=== PATIENT | male | born 1950 | race Caucasian/White ===

== ENCOUNTER → 2019-04-05 | Outpatient (CLI) | payer OTHER ==
[~2019-04-05] MED LIST: KEFLEX250 MG PO; PRILOSEC 10MG C10 M1 PO
--- NOTE | 2019-04-05 10:13 | 2DMMODE ---
[facility] [place] [address] 2 D/M-MODE ECHOCARDIOGRAM Name: ALDEN ALFARO Room #: [facility]#: [id number] ������������� Admission: 04/05/19 ������������� Attend Phys: Kaveh Orellana Discharge: ��� ������������� ��� Date of : 54 Date of Service: 04/05/19 1013 �� Report #: [id number] �������� ��������������������������������������������[id number] THIS REPORT FOR: //name// APPROVED REPORT Study performed: 04/05/2019 09:07:10 EXAM: Comprehensive 2D, Doppler, and color-flow Echocardiogram Patient Location: Out-Patient Status: routine BSA: 2.21 HR: 70 bpm BP: 132/86 mmHg Rhythm: NSR Other Information Study Quality: Adequate Indications Pacemaker 2D Dimensions RVDd: 41.85 mm IVSd: 10.30 (7-11mm) LVOT Diam: 25.05 (18-24mm) LVDd: 48.32 mm PWd: 10.49 (7-11mm) Ascending Ao: 38.26 (22-36mm) LVDs: 34.59 (25-40mm) Aortic Root: 42.49 mm Volumes Left Atrial Volume (Systole) Single Plane 4CH: 49.93 mL Single Plane 2CH: 54.40 mL LA ESV Index: 25.00 mL/m2 Aortic Valve AoV Peak Marko.: 1.34 m/s AO Peak Gr.: 7.14 mmHg LVOT Max P.66 mmHg LVOT Max V: 0.96 m/s STEVE Vmax: 3.53 cm2 Mitral Valve E/A Ratio: 0.6 MV Decel. Time: 215.18 ms MV E Max Marko.: 0.53 m/s [facility] [address] [address] 2 D/M-MODE ECHOCARDIOGRAM Name: ALDEN ALFARO Room #: [facility]#: [id number] ������������� Admission: 04/05/19 ������������� Attend Phys: Kaveh Orellana Discharge: ��� ������������� ��� Date of : 54 Date of Service: 04/05/19 1013 �� Report #: [id number] �������� ��������������������������������������������[id number] MV A Marko.: 0.84 m/s MV PHT: 62.40 ms IVRT: 83.04 ms Pulmonary Valve PV Peak Marko.: 0.84 m/s PV Peak Gr.: 2.85 mmHg Pulmonary Vein P Vein S: 0.47 m/s P Vein A: 0.38 m/s P Vein D: 0.30 m/s P Vein A Dur.: 96.9 msec P Vein S/D Ratio: 1.57 Tricuspid Valve RAP Estimate: 5.00 mmHg Left Ventricle The left ventricle is normal size. There is normal LV segmental wall motion. There is normal left ventricular wall thickness. Left ventricular systolic function is normal. LVEF is 55-60%. Mild diastolic dysfunction is present (impaired relaxation pattern). Right Ventricle The right ventricle is normal size. The right ventricular systolic function is normal. Pacemaker lead is present in the right ventricle. Atria The left atrium size is normal. The right atrium size is normal. Aortic Valve Aortic valve is trileaflet. Mild to moderate aortic regurgitation. There is no aortic valvular stenosis. Mitral Valve The mitral valve is normal in structure. There is no mitral valve regurgitation noted. No evidence of mitral valve stenosis. Tricuspid Valve The tricuspid valve is normal in structure. There is no tricuspid valve regurgitation noted. Unable to assess PA pressure. Pulmonic Valve Pulmonic valve is not well visualized. Trace pulmonic regurgitation. 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 The ascending aorta measures at the upper limits of normal. IVC is normal in size and collapses >50% with inspiration. Pericardium There is no pericardial effusion. <Conclusion> The left ventricle is normal size. Left ventricular systolic function is normal. LVEF is 55-60%. Aortic valve is trileaflet. Mild to moderate aortic regurgitation. There is no aortic valvular stenosis. The tricuspid valve is normal in structure. There is no tricuspid valve regurgitation noted. Unable to assess PA pressure. ��������������������������������������������� <ELECTRONICALLY SIGNED> ���������������������������������������� By: Kaveh Orellana MD ��������������������������������������������� 04/05/19 1013 1013 1013 Kaveh Orellana MD /INF
== END ==
LOC: CV 08:32
DX: I35.1 Nonrheumatic aortic (valve) insufficiency (principal); Z95.0 Presence of cardiac pacemaker

== ENCOUNTER → 2019-08-19 | Outpatient (CLI) | payer OTHER | LOC: CAT 13:32 | DX: Z13.6 Encounter for screening for cardiovascular disorders (principal); E78.00 Pure hypercholesterolemia, unspecified; I25.10 Atherosclerotic heart disease of native coronary artery without angina pectoris ==

== ENCOUNTER → 2020-04-05 | Outpatient (CLI) | payer OTHER | LOC: SJCVC 14:24 | PROVIDERS: ATTEND Internal Medicine Cardiovascular Disease | DX: I42.2 Other hypertrophic cardiomyopathy (principal); I10 Essential (primary) hypertension; G47.30 Sleep apnea, unspecified; E78.5 Hyperlipidemia, unspecified; Z95.0 Presence of cardiac pacemaker; Z79.899 Other long term (current) drug therapy ==

== ENCOUNTER → 2021-04-09 | Outpatient (CLI) | payer OTHER | LOC: SJCVC 11:16 | PROVIDERS: ATTEND Internal Medicine | DX: R94.31 Abnormal electrocardiogram [ECG] [EKG] (principal); I44.30 Unspecified atrioventricular block; I10 Essential (primary) hypertension; G47.33 Obstructive sleep apnea (adult) (pediatric); E78.5 Hyperlipidemia, unspecified; Z88.8 Allergy status to other drugs, medicaments and biological substances; Z95.0 Presence of cardiac pacemaker; Z79.899 Other long term (current) drug therapy; Z86.16 Personal history of COVID-19 ==